=== PATIENT | female | born 1985 | race Caucasian/White ===

== ENCOUNTER 2017-03-11 18:11 | Emergency (ER) | payer OTHER ==
[2017-03-11 18:43] VITALS: BP 128/59; PULSE 64; RESP 16; TEMP 97.8
--- NOTE | 2017-03-11 19:15 | ED ---
Lower Extremity Injury HPI - General Chief Complaint: Extremity Injury, Lower Stated Complaint: Ankle Pain Time Seen by Provider: 03/11/17 18:47 Source: patient, RN notes reviewed Mode of arrival: wheelchair Limitations: no limitations - History of Present Illness Initial Comments: 32-year-old female presents emergency Department chief complaint left ankle pain. Patient states that she went to bend down the steps and states that her ankle rolled. She states she had recurrent issues with this and has seen a [facility] in [place] who told her that she may need surgery. Patient was told that her tendon was rolling over her malleolus region. Patient feels pain on lateral to mid ankle. Thank you foot pain. - Related Data Home Medications Medication Instructions Recorded Confirmed No Known Home Medications [No 03/11/17 03/11/17 Known Home Medications] Allergies Allergy/AdvReac Type Severity Reaction Status Date / Time No Known Allergies Allergy Verified 03/11/17 19:06 Review of Systems ROS Statement: Those systems with pertinent positive or pertinent negative responses have been documented in the HPI. ROS Other: All systems not noted in ROS Statement are negative. Past Medical History Past Medical History: No Reported History History of Any Multi-Drug Resistant Organisms: None Reported Past Surgical History: Section Past Psychological History: No Psychological Hx Reported Smoking Status: Current every day smoker Past Alcohol Use History: None Reported Past Drug Use History: None Reported General Exam Limitations: no limitations General appearance: alert, in no apparent distress Respiratory exam: Present: normal lung sounds bilaterally. Absent: respiratory distress, wheezes, rales, rhonchi, stridor Cardiovascular Exam: Present: regular rate, normal rhythm, normal heart sounds. Absent: systolic murmur, diastolic murmur, rubs, gallop, clicks Extremities exam: Present: other (Left ankle there is tenderness the lateral malleolus and mid ankle, pain with range of motion especially inversion and eversion neurovascular intact there is no metatarsal runny foot tenderness) Skin exam: Present: warm, dry, intact, normal color. Absent: rash Course Vital Signs 03/11/17 18:40 Temperature 97.8 F Pulse Rate 64 Respiratory 16 Rate Blood Pressure 128/59 O2 Sat by Pulse 99 Oximetry Medical Decision Making - Medical Decision Making 32-year-old female emergency from for ankle pain. There is no acute fracture. Patient has recurrent ankle sprains. He'll referred to Dr. clayton foot and ankle specialist. Return parameters were discussed. Disposition Clinical Impression: Left ankle sprain Disposition: HOME SELF-CARE Condition: Stable Instructions: Ankle Sprain (ED) Additional Instructions: Please return to the Emergency Department if symptoms worsen or any other concerns. Referrals: Lukasz Montalvo MD [Medical Doctor] - 1-2 days Time of Disposition: 19:35
--- NOTE | 2017-03-11 19:27 | XR ---
EXAMINATION TYPE: XR ankle complete LT DATE OF EXAM: 03/11/2017 COMPARISON: NONE HISTORY: Pain TECHNIQUE: 3 views FINDINGS: There is soft tissue swelling over the lateral malleolus. Ankle mortise is anatomic. Joint spaces are normal. IMPRESSION: Soft tissue swelling. No fracture.
== END 2017-03-11 19:40 | disposition home or self-care (01) ==
LOC: EC 18:11
DX: S93.402A Sprain of unspecified ligament of left ankle, initial encounter (principal); F17.200 Nicotine dependence, unspecified, uncomplicated; W10.9XXA Fall (on) (from) unspecified stairs and steps, initial encounter; Y92.009 Unspecified place in unspecified non-institutional (private) residence as the place of occurrence of the external cause
CPT/HCPCS: 99283

== ENCOUNTER 2018-03-25 11:01 | Emergency (ER) | payer OTHER ==
[2018-03-25] MEDS ORDERED: SODIUM CHLORIDE 0.9% 1,000 ML IV STA (11:38)
[2018-03-25] MEDS ORDERED: MECLIZINE 12.5 MG TAB PO STA (11:38)
--- NOTE | 2018-03-25 12:16 | ED ---
General Adult HPI - General Chief complaint: Dizziness Stated complaint: SHAKY, DIZZINESS, TUNNEL VISION Time Seen by Provider: 03/25/18 11:23 Source: patient Mode of arrival: wheelchair Limitations: no limitations - History of Present Illness Initial comments: 33-year-old female patient presents to ED with dizziness and changes in vision. At approximately 10 AM while at work patient began to feel dizzy, felt as if it was spinning about her. Dizziness was exacerbated by extraocular movements and turning head from side to side. Patient additionally experienced decreased perception of depth perception and decreased peripheral vision. Her visual complaints have improved since onset but still not at baseline. Patient additionally complained of jaw tightness that has since resolved. Patient complained of some heart palpitations at time of onset, that have since resolved. Denies weakness, headache, paresthesias, facial droop, chest pain, shortness of breath, abdominal pain. Systemic: Pt denies fatigue, myalgia, fever/chills, rash. Pt denies weakness, night sweats, weight loss. Neuro: Pt denies syncope or pre-syncope. HEENT: Pt denies ocular discharge or irritation, otalgia, rhinorrhea, pharyngitis or notable lymphadenopathy. Cardiopulmonary: Pt denies chest pain, SOB, dyspnea on exertion. Abdominal/GI: Pt denies abdominal pain, n/v/d. : Pt denies dysuria, burning w/ urination, frequency/urgency. Denies new onset urinary or bowel incontinence. MSK: Pt denies myalgia, loss of strength or function in extremities. - Related Data Home Medications Medication Instructions Recorded Confirmed Cyanocobalamin (Vitamin B-12) 1,000 mcg PO DAILY 03/25/18 03/25/18 [Vitamin B-12] Ibuprofen [Motrin Ib] 400 mg PO Q6H PRN 03/25/18 03/25/18 Previous Rx's Medication Instructions Recorded Meclizine [Antivert] 25 mg PO Q6H PRN #20 tab 03/25/18 Allergies Allergy/AdvReac Type Severity Reaction Status Date / Time No Known Allergies Allergy Verified 03/25/18 11:46 Review of Systems ROS Statement: Those systems with pertinent positive or pertinent negative responses have been documented in the HPI. ROS Other: All systems not noted in ROS Statement are negative. Past Medical History Past Medical History: No Reported History History of Any Multi-Drug Resistant Organisms: None Reported Past Surgical History: Section, Tubal Ligation Past Psychological History: No Psychological Hx Reported Smoking Status: Current every day smoker Past Alcohol Use History: None Reported Past Drug Use History: None Reported General Exam - General Exam Comments Initial Comments: Constitutional: NAD, AOX3, Pt has pleasant affect. HEENT: NC/AT, trachea midline, neck supple, no lymphadenopathy. Posterior pharynx non erythematous, without exudates. External ears appear normal, without discharge. Mucous membranes moist. Eyes PERRLA, EOM intact. There is no scleral icterus. No pallor noted. Cardiopulmonary: RRR, no murmurs, rubs or gallops, no JVD noted. Lungs CTAB in anterior and posterior méndez. No peripheral edema. Abdominal exam: Abdomen soft and non-distended. Abdomen non-tender to palpation in all 4 quadrants. Bowel sounds active in LLQ. No hepatosplenomegaly. Neuro: CN II-XII grossly intact. Peripheral vision intact. Limitations: no limitations Course Vital Signs 03/25/18 11:19 Temperature 98.3 F Pulse Rate 69 Respiratory 18 Rate Blood Pressure 125/69 O2 Sat by Pulse 100 Oximetry Medical Decision Making - Medical Decision Making Patient dizziness resolved with pharmacologic intervention of meclizine. Patient's symptoms described prior to arrival at ED continued to be resolved. Cardiac workup including EKG and troponin did not display any acute pathology. Noncontrast CT of the brain did not display acute pathology. CBC and CMP were not impressive. Patient's visual acuity subjectively improved per patient, 20/ 20 bilaterally with glasses per evaluation.. Patient will follow-up with ophthalmology outpatient as well as primary care provider. Patient to be discharged with prescription of Antivert to use as needed if dizziness occurs. Likely patient experienced benign positional paroxysmal vertigo. Patient to return to the ED if new symptoms develop, or symptoms worsen. - EKG Data EKG Comments: Normal sinus rhythm, normal EKG. Ventricular rate 65 TN interval 152 QRS 94. Disposition Clinical Impression: Benign paroxysmal positional vertigo Disposition: HOME SELF-CARE Condition: Good Instructions: Vertigo (ED), Benign Paroxysmal Positional Vertigo (ED) Additional Instructions: Patient to adhere to previously discussed treatment plan and will take medications as directed. Patient to follow up with PCP and ophthalmology in 1-2 days. Patient to return to ED if symptoms do not improve or worsen. Prescriptions: Meclizine [Antivert] 25 mg PO Q6H PRN #20 tab PRN Reason: Dizziness Is patient prescribed a controlled substance at d/c from ED?: No Referrals: Yajaira Lopez MD [Primary Care Provider] - 1-2 days Neymar Kerns MD [STAFF PHYSICIAN] - 1-2 days Time of Disposition: 14:40
--- NOTE | 2018-03-25 12:18 | XR ---
EXAMINATION TYPE: XR chest 2V DATE OF EXAM: 03/25/2018 COMPARISON: NONE HISTORY: Chest pain TECHNIQUE: Frontal and lateral views of the chest are obtained. FINDINGS: There is no focal air space opacity. No evidence for pneumothorax. No pleural effusion. The cardiac silhouette size is within normal limits. The osseous structures are grossly intact. IMPRESSION: 1. No acute cardiopulmonary process.
[2018-03-25 12:24] LABS: Basophils % (A) 0 %; Eosinophils # (A) 0.1 k/uL (0-0.7); Eosinophils % (A) 1 %; HCT 41.2 % (34.0-46.0); HGB 13.9 gm/dL (11.4-16.0); Lymphocytes # (A) 1.7 k/uL (1.0-4.8); Lymphocytes % (A) 16 %; MCH 29.7 pg (25.0-35.0); MCHC 33.7 g/dL (31.0-37.0); MCV 88.1 fL (80.0-100.0); Mean Platelet Volume 9.7; Monocytes # (A) 0.4 k/uL (0-1.0); Monocytes % (A) 4 %; Neutrophils # (A) 8.4 k/uL (1.3-7.7); Neutrophils % (A) 78 %; Platelet Count 210 k/uL (150-450); RBC 4.67 m/uL (3.80-5.40); WBC 10.7 k/uL (3.8-10.6)
[2018-03-25 12:40] LABS: ALT 19 U/L (9-52); AST 19 U/L (14-36); Albumin 4.8 g/dL (3.5-5.0); Alkaline Phosphatase 73 U/L (38-126); Anion Gap 13 mmol/L; Blood Urea Nitrogen 13 mg/dL (7-17); Calcium 10.6 mg/dL (8.4-10.2); Carbon Dioxide 20 mmol/L (22-30); Chloride 107 mmol/L (98-107); Glucose 102 mg/dL (74-99); Potassium 4.2 mmol/L (3.5-5.1); Sodium 140 mmol/L (137-145); Total Bilirubin 0.7 mg/dL (0.2-1.3); Total Protein 8.1 g/dL (6.3-8.2)
--- NOTE | 2018-03-25 14:08 | CT ---
EXAMINATION TYPE: CT brain wo con DATE OF EXAM: 03/25/2018 COMPARISON: None HISTORY: dizziness, tunnel vision CT DLP: 1074.[address] of the brain was performed. The ventricles, basal cisterns and sulci overlying the cerebral convexities demonstrate a normal appe arance. There is no evidence for intracranial hemorrhage or sulcal effacement. No mass effects are seen. Osseous calvarium is intact. If symptoms persist consider MRI as clinically warranted. IMPRESSION: 1. No acute intracranial process is seen at this time.
[2018-03-25 15:05] VITALS: BP 118/81; PULSE 78; RESP 16; TEMP 97.8
== END 2018-03-25 15:04 | disposition home or self-care (01) ==
LOC: EC 11:01
DX: H81.10 Benign paroxysmal vertigo, unspecified ear (principal); F17.200 Nicotine dependence, unspecified, uncomplicated
CPT/HCPCS: 36415; 70450; 71046; 80053; 84484; 85025; 93005; 96360; 96361; 99284

== ENCOUNTER 2020-12-10 07:34 | Emergency (ER) | payer OTHER ==
[2020-12-10] MEDS ORDERED: SODIUM CHLORIDE 0.9% 1,000 ML IV STA (08:05)
--- NOTE | 2020-12-10 08:08 | ED ---
General Adult HPI - General Chief complaint: Abdominal Pain Stated complaint: L Side Pain Time Seen by Provider: 12/10/20 07:48 Source: patient Mode of arrival: ambulatory Limitations: no limitations - History of Present Illness Initial comments: 35-year-old female with a past medical history of anxiety presents to the emergency department for chief complaint of left-sided low to mid back pain. Patient reports this has been ongoing for the past several weeks. States she saw her primary care doctor who treated her for a urinary tract infection. She states the pain did improve however worsened again over the past couple days. Patient denies fevers or chills. Patient is concerned she could have a kidney stone. Patient states she was going to go to work today but was nauseous because of the pain so came into the ER.Patient has no other complaints at this time including shortness of breath, chest pain, abdominal pain, nausea or vomiting, headache, or visual changes. - Related Data Home Medications Medication Instructions Recorded Confirmed Escitalopram Oxalate [Lexapro] 5 mg PO DAILY 12/10/20 12/10/20 clonazePAM [KlonoPIN] 0.25 mg PO BID 12/10/20 12/10/20 Previous Rx's Medication Instructions Recorded Cyclobenzaprine [Flexeril] 10 mg PO TID #14 tab 12/10/20 Allergies Allergy/AdvReac Type Severity Reaction Status Date / Time No Known Allergies Allergy Verified 12/10/20 07:59 Review of Systems ROS Statement: Those systems with pertinent positive or pertinent negative responses have been documented in the HPI. ROS Other: All systems not noted in ROS Statement are negative. Past Medical History Past Medical History: No Reported History Additional Past Medical History / Comment(s): anxiety History of Any Multi-Drug Resistant Organisms: None Reported Past Surgical History: Section, Tubal Ligation, Uterine Ablation Additional Past Surgical History / Comment(s): ear Past Psychological History: Anxiety, Depression Smoking Status: Never smoker Past Alcohol Use History: None Reported Past Drug Use History: None Reported General Exam Limitations: no limitations General appearance: alert Head exam: Present: atraumatic, normocephalic, normal inspection Eye exam: Present: normal appearance, PERRL, EOMI. Absent: scleral icterus, conjunctival injection, periorbital swelling ENT exam: Present: normal exam, mucous membranes moist Neck exam: Present: normal inspection, full ROM. Absent: tenderness, meningismus, lymphadenopathy Respiratory exam: Present: normal lung sounds bilaterally. Absent: respiratory distress, wheezes, rales, rhonchi, stridor Cardiovascular Exam: Present: regular rate, normal rhythm, normal heart sounds. Absent: systolic murmur, diastolic murmur, rubs, gallop, clicks GI/Abdominal exam: Present: soft, normal bowel sounds. Absent: distended, tenderness, guarding, rebound, rigid Back exam: Present: tenderness (Left sided lumbar paraspinal tenderness). Absent: CVA tenderness (R), CVA tenderness (L) Neurological exam: Present: alert Course Vital Signs 12/10/20 07:42 Temperature 97.9 F Pulse Rate 61 Respiratory 18 Rate Blood Pressure 122/67 O2 Sat by Pulse 100 Oximetry Medical Decision Making - Medical Decision Making Vitals are stable. Patient does not have any abdominal or CVA tenderness. She does have reproducible sided paraspinal lumbar tenderness. CBC and CMP are unremarkable. Urinalysis does not show any obvious evidence of infection. CT abdomen and pelvis with contrast shows a nonspecific enteritis. No kidney stones. Patient is given pain medication and did have improvement in symptoms. It is reproducible to palpation. Suspect pain is likely musculoskeletal in nature. We will try patient on a muscle relaxer and have her follow up with primary care. She will return here for any worsening symptoms. - Lab Data Result diagrams: 12/10/20 08:17 12/10/20 08:17 Lab Results 12/10/20 12/10/20 12/10/20 Range/Units 08:17 08:17 08:17 WBC 8.0 (3.8-10.6) k/uL RBC 4.88 (3.80-5.40) m/uL Hgb 14.5 (11.4-16.0) gm/dL Hct 44.6 (34.0-46.0) % MCV 91.3 (80.0-100.0) fL MCH 29.8 (25.0-35.0) pg MCHC 32.6 (31.0-37.0) g/dL RDW 13.7 (11.5-15.5) % Plt Count 203 (150-450) k/uL MPV 9.3 Neutrophils % 72 % Lymphocytes % 20 % Monocytes % 4 % Eosinophils % 3 % Basophils % 1 % Neutrophils # 5.7 (1.3-7.7) k/uL Lymphocytes # 1.6 (1.0-4.8) k/uL Monocytes # 0.3 (0-1.0) k/uL Eosinophils # 0.2 (0-0.7) k/uL Basophils # 0.1 (0-0.2) k/uL Sodium (137-145) mmol/L Potassium (3.5-5.1) mmol/L Chloride (98-107) mmol/L Carbon Dioxide (22-30) mmol/L Anion Gap mmol/L BUN (7-17) mg/dL Creatinine (0.52-1.04) mg/dL Est GFR (CKD-EPI)AfAm (>60 ml/min/1.73 sqM) Est GFR (CKD-EPI)NonAf (>60 ml/min/1.73 sqM) Glucose (74-99) mg/dL Calcium (8.4-10.2) mg/dL Total Bilirubin (0.2-1.3) mg/dL AST (14-36) U/L ALT (4-34) U/L Alkaline Phosphatase (38-126) U/L Total Protein (6.3-8.2) g/dL Albumin (3.5-5.0) g/dL Amylase (30-110) U/L Lipase (23-300) U/L Urine Color Yellow Urine Appearance Clear (Clear) Urine pH 5.5 (5.0-8.0) Ur Specific [place] 1.010 (1.001-1.035) Urine Protein Negative (Negative) Urine Glucose (UA) Negative (Negative) Urine Ketones Negative (Negative) Urine Blood Negative (Negative) Urine Nitrite Negative (Negative) Urine Bilirubin Negative (Negative) Urine Urobilinogen <2.0 (<2.0) mg/dL Ur Leukocyte Esterase Small H (Negative) Urine WBC 4 (0-5) /hpf Ur Squamous Epith Cells 1 (0-4) /hpf Urine Bacteria Rare H (None) /hpf Urine Mucus Rare H (None) /hpf Urine HCG, Qual Not Detected (Not Detectd) 12/10/20 Range/Units 08:17 WBC (3.8-10.6) k/uL RBC (3.80-5.40) m/uL Hgb (11.4-16.0) gm/dL Hct (34.0-46.0) % MCV (80.0-100.0) fL MCH (25.0-35.0) pg MCHC (31.0-37.0) g/dL RDW (11.5-15.5) % Plt Count (150-450) k/uL MPV Neutrophils % % Lymphocytes % % Monocytes % % Eosinophils % % Basophils % % Neutrophils # (1.3-7.7) k/uL Lymphocytes # (1.0-4.8) k/uL Monocytes # (0-1.0) k/uL Eosinophils # (0-0.7) k/uL Basophils # (0-0.2) k/uL Sodium 141 (137-145) mmol/L Potassium 4.0 (3.5-5.1) mmol/L Chloride 108 H (98-107) mmol/L Carbon Dioxide 24 (22-30) mmol/L Anion Gap 9 mmol/L BUN 11 (7-17) mg/dL Creatinine 0.65 (0.52-1.04) mg/dL Est GFR (CKD-EPI)AfAm >90 (>60 ml/min/1.73 sqM) Est GFR (CKD-EPI)NonAf >90 (>60 ml/min/1.73 sqM) Glucose 108 H (74-99) mg/dL Calcium 10.0 (8.4-10.2) mg/dL Total Bilirubin 0.4 (0.2-1.3) mg/dL AST 23 (14-36) U/L ALT 14 (4-34) U/L Alkaline Phosphatase 96 (38-126) U/L Total Protein 7.5 (6.3-8.2) g/dL Albumin 4.7 (3.5-5.0) g/dL Amylase 50 (30-110) U/L Lipase 31 (23-300) U/L Urine Color Urine Appearance (Clear) Urine pH (5.0-8.0) Ur Specific [place] (1.001-1.035) Urine Protein (Negative) Urine Glucose (UA) (Negative) Urine Ketones (Negative) Urine Blood (Negative) Urine Nitrite (Negative) Urine Bilirubin (Negative) Urine Urobilinogen (<2.0) mg/dL Ur Leukocyte Esterase (Negative) Urine WBC (0-5) /hpf Ur Squamous Epith Cells (0-4) /hpf Urine Bacteria (None) /hpf Urine Mucus (None) /hpf Urine HCG, Qual (Not Detectd) Disposition Clinical Impression: Back pain, Enteritis Disposition: HOME SELF-CARE Condition: Good Instructions (If sedation given, give patient instructions): Back Pain (ED) Additional Instructions: Please take Motrin and Tylenol for pain. Take muscle relaxer as needed but do not drive or operate machinery while taking this. Follow-up with your doctor to discuss symptoms as well as CAT scan findings. Return to the emergency room for any worsening symptoms. Prescriptions: Cyclobenzaprine [Flexeril] 10 mg PO TID #14 tab Is patient prescribed a controlled substance at d/c from ED?: No Referrals: Dhiraj Keenan MD [Primary Care Provider] - 1-2 days Time of Disposition: 09:51
[2020-12-10 08:26] LABS: Basophils # (A) 0.1 k/uL (0-0.2); Basophils % (A) 1 %; Eosinophils # (A) 0.2 k/uL (0-0.7); Eosinophils % (A) 3 %; HCT 44.6 % (34.0-46.0); HGB 14.5 gm/dL (11.4-16.0); Lymphocytes # (A) 1.6 k/uL (1.0-4.8); Lymphocytes % (A) 20 %; MCH 29.8 pg (25.0-35.0); MCHC 32.6 g/dL (31.0-37.0); MCV 91.3 fL (80.0-100.0); Mean Platelet Volume 9.3; Monocytes # (A) 0.3 k/uL (0-1.0); Monocytes % (A) 4 %; Neutrophils # (A) 5.7 k/uL (1.3-7.7); Neutrophils % (A) 72 %; Platelet Count 203 k/uL (150-450); RBC 4.88 m/uL (3.80-5.40); RDW 13.7 % (11.5-15.5)
[2020-12-10 08:30] LABS: Appearance,Urine Clear (Clear); Bacteria,Urine Rare /hpf; Bilirubin,Urine Negative (Negative); Blood,Urine Negative (Negative); Color,Urine Yellow; Glucose,Urine (UA) Negative (Negative); Ketones,Urine Negative (Negative); Leukocyte Esterase,Urine Small (Negative); Mucus,Urine Rare /hpf; Nitrite,Urine Negative (Negative); PH, Urine 5.5 (5.0-8.0); Protein,Urine Negative (Negative); Squamous Epithelial Cell,Urine 1 /hpf (0-4); Urobilinogen,Urine <2.0 mg/dL (<2.0); WBC,Urine 4 /hpf (0-5)
[2020-12-10 08:40] LABS: ALT 14 U/L (4-34); AST 23 U/L (14-36); African American GFR (CKD) >90 (>60 ml/min/1.73 sqM); Albumin 4.7 g/dL (3.5-5.0); Alkaline Phosphatase 96 U/L (38-126); Amylase 50 U/L (30-110); Anion Gap 9 mmol/L; Blood Urea Nitrogen 11 mg/dL (7-17); Carbon Dioxide 24 mmol/L (22-30); Chloride 108 mmol/L (98-107); Glucose 108 mg/dL (74-99); Lipase 31 U/L (23-300); Non-African American GFR(CKD) >90 (>60 ml/min/1.73 sqM); Sodium 141 mmol/L (137-145); Total Bilirubin 0.4 mg/dL (0.2-1.3); Total Protein 7.5 g/dL (6.3-8.2)
[2020-12-10] MEDS ORDERED: KETOROLAC 15 MG/ML 1 ML VIAL IVP STA (09:07)
--- NOTE | 2020-12-10 09:47 | CT ---
EXAMINATION TYPE: CT abdomen pelvis w con DATE OF EXAM: 12/10/2020 COMPARISON: None HISTORY: Left flank pain CT DLP: 1222.7 mGycm CONTRAST: CT scan of the abdomen and pelvis is performed without Oral Contrast and with IV Contrast, patient in jected with 100 ml mL of Isovue 300. FINDINGS: LUNG BASES-: No visible nodule. No infiltrate. LIVER/GB: No calcified gallstones. No space occupying hepatic lesion. Biliary tree is of normal ca liber. PANCREAS: No inflammation. No distinct mass. SPLEEN: No splenic enlargement. No lesion seen. ADRENALS: No nodule. No thickening. KIDNEYS/BLADDER: No hydronephrosis. No nephrolithiasis. No distinct renal mass. Urinary bladder g rossly unremarkable. BOWEL: Normal appendix. Mild wall thickening and fluid distention mid to distal jejunal loops may ref lect underlying enteritis. Correlate clinically. GENITAL ORGANS: No gross abnormality. LYMPH NODES: No greater than 1cm abdominal or pelvic lymph nodes are appreciated. AORTA: No significant abnormality. OSSEOUS STRUCTURES: No significant abnormality is seen. OTHER: No significant additional abnormality is seen. IMPRESSION: 1. Correlate for nonspecific enteritis.
[2020-12-10 10:05] VITALS: BP 100/69; PULSE 60; RESP 16; TEMP 98.1
== END 2020-12-10 10:25 | disposition home or self-care (01) ==
LOC: EC 07:34
DX: K52.9 Noninfective gastroenteritis and colitis, unspecified (principal); Z98.51 Tubal ligation status; F32.9 Major depressive disorder, single episode, unspecified
CPT/HCPCS: 36415; 80053; 82150; 83690; 85025; 81001; 81025; 74177; 99284; 96374; 96361 ×2; J1885; Q9967

== ENCOUNTER 2022-11-24 07:09 | Observation (INO) | payer OTHER ==
[2022-11-24] MEDS ORDERED: SODIUM CHLORIDE 0.9% 500 ML 500 ML IV STA (07:23)
[2022-11-24] MEDS ORDERED: KETOROLAC 15 MG/ML 1 ML VIAL IVP STA (07:23)
[2022-11-24] MEDS ORDERED: ONDANSETRON 4 MG/2 ML VIAL IVP STA (07:23)
--- NOTE | 2022-11-24 07:28 | ED ---
General Adult HPI - General Chief complaint: Abdominal Pain Stated complaint: Right side abd pain Time Seen by Provider: 11/24/22 07:18 Source: patient Mode of arrival: ambulatory Limitations: no limitations - History of Present Illness Initial comments: Nontoxic, tearful 37-year-old female presents to the emergency room with right- sided flank pain that radiates to her right groin. Patient states pain initially started in her back on Thursday. Increasing discomfort brought her to the emergency room today. Does have a history of kidney stones, last one over a decade ago. Denies any fevers. No nausea vomiting or diarrhea. History of tubal ligation with uterine ablation and depression. -: days(s) (4) Location: right (flank) Radiation: other (right groin) Severity scale (1-10): 10 Quality: constant Associated Symptoms: denies other symptoms - Related Data Home Medications Medication Instructions Recorded Confirmed clonazePAM [KlonoPIN] 0.5 mg PO DAILY PRN 12/10/20 11/24/22 Escitalopram [Lexapro] 10 mg PO DAILY 11/24/22 11/24/22 Ibuprofen [Motrin Ib] 800 mg PO Q8H PRN 11/24/22 11/24/22 Allergies Allergy/AdvReac Type Severity Reaction Status Date / Time No Known Allergies Allergy Verified 11/24/22 08:54 Patient : No Review of Systems ROS Statement: Those systems with pertinent positive or pertinent negative responses have been documented in the HPI. ROS Other: All systems not noted in ROS Statement are negative. Past Medical History Past Medical History: No Reported History Additional Past Medical History / Comment(s): anxiety History of Any Multi-Drug Resistant Organisms: None Reported Past Surgical History: Section, Tubal Ligation, Uterine Ablation Additional Past Surgical History / Comment(s): ear Past Psychological History: Anxiety, Depression Smoking Status: Current every day smoker Past Alcohol Use History: Occasional Past Drug Use History: Marijuana General Exam Limitations: no limitations General appearance: alert, in no apparent distress Head exam: Present: atraumatic Eye exam: Present: normal appearance. Absent: scleral icterus, periorbital swelling ENT exam: Present: mucous membranes moist Neck exam: Absent: meningismus Respiratory exam: Absent: respiratory distress, accessory muscle use Cardiovascular Exam: Present: regular rate GI/Abdominal exam: Present: soft. Absent: distended, tenderness, guarding, rebound, rigid Extremities exam: Present: full ROM, normal capillary refill. Absent: pedal edema Back exam: Present: full ROM, CVA tenderness (R). Absent: vertebral tenderness, rash noted Neurological exam: Present: alert, oriented X3 Psychiatric exam: Present: normal affect, normal mood Skin exam: Present: warm, dry, normal color. Absent: cyanosis, diaphoretic, petechiae, pallor Course Vital Signs 11/24/22 11/24/22 11/24/22 07:12 10:41 11:30 Temperature 98.1 F Pulse Rate 86 67 77 Respiratory 22 18 18 Rate Blood Pressure 146/80 116/67 120/68 O2 Sat by Pulse 98 97 99 Oximetry Medical Decision Making - Medical Decision Making Was pt. sent in by a medical professional or institution (, PA, INTEGRATION MANAGER, urgent care, hospital, or prison...) When possible be specific @ -No Did you speak to anyone other than the patient for history (EMS, parent, family, police, friend...)? What history was obtained from this source @ -No Did you review nursing and triage notes (agree or disagree)? Why? @ -I reviewed and agree with nursing and triage notes Were old charts reviewed (outside hosp., previous admission, EMS record, old EKG, old radiological studies, urgent care reports/EKG's, prison records)? Report findings @ -No old charts were reviewed Differential Diagnosis (chest pain, altered mental status, abdominal pain women, abdominal pain men, vaginal bleeding, weakness, fever, dyspnea, syncope, headache, dizziness, GI bleed, back pain, seizure, CVA, palpatations, mental health, musculoskeletal)? @ -UTI, kidney stone, pyelonephritis EKG interpreted by me (3pts min.). @ -n/a X-rays interpreted by me (1pt min.). @ -None done CT interpreted by me (1pt min.). @ -yes CT abdomen and pelvis interpreted by me shows no evidence of abnormal calculi. U/S interpreted by me (1pt. min.). @ -None done What testing was considered but not performed or refused? (CT, X-rays, U/S, labs)? Why? @ -None What meds were considered but not given or refused? Why? @ -None Did you discuss the management of the patient with other professionals (professionals i.e. , PA, INTEGRATION MANAGER, lab, RT, psych nurse, oncology social work, hybrid corn breeder, teacher, medical officer psychiatry, mattress spring encaser)? Give summary @ -No Was smoking cessation discussed for >3mins.? @ -No Was critical care preformed (if so, how long)? @ -No Were there social determinants of health that impacted care today? How? (Homelessness, low income, unemployed, alcoholism, drug addiction, transportation, low edu. Level, literacy, decrease access to med. care, prison, rehab)? @ -No Was there de-escalation of care discussed even if they declined (Discuss DNR or withdrawal of care, Hospice)? DNR status @ -No What co-morbidities impacted this encounter? (DM, HTN, Smoking, COPD, CAD, Cancer, CVA, ARF, Chemo, Hep., AIDS, mental health diagnosis, sleep apnea, morbid obesity)? @ -History of tubal ligation with uterine ablation, anxiety and depression. Was patient admitted / discharged? Hospital course, mention meds given and r oute, prescriptions, significant lab abnormalities, going to OR and other pertinent info. @ -Admitted Nontoxic, tearful 37-year-old female presents to the emergency room with right- sided flank pain that radiates to her right groin. Patient states pain initially started right flank on Thursday. Increasing discomfort brought her to the emergency room today. Does have a history of kidney stones, last one over a decade ago. Denies any fevers. No nausea vomiting or diarrhea. Radiologist interpretation small to moderate right hydronephrosis and hydroureter extending to the urinary bladder. No obstructing renal or ureteral stones. Some mild wall thickening of the urinary bladder with some mild irregularity. Correlate for cystitis. Neoplasm unusual but should be consid ered. Additional workup recommended. Labs show leukocytosis with evidence of UTI, positive for nitrites, bacteria and leukocyte esterase. Urine culture sent. Patient was given a gram of Rocephin to treat pyelonephritis. Patient offered discharge versus admission and requests admission due to nelly rns regarding pain although states pain is relieved with Toradol at this time. Patient will be admitted Case discussed with Dr. Johnston Undiagnosed new problem with uncertain prognosis? @ -No Drug Therapy requiring intensive monitoring for toxicity (Heparin, Nitro, Insulin, Cardizem)? @ -No Were any procedures done? @ -No Diagnosis/symptom? @ -Pyelonephritis, hydronephrosis hydroureter, UTI Acute, or Chronic, or Acute on Chronic? @ -acute Uncomplicated (without systemic symptoms) or Complicated (systemic symptoms)? @ -Complicated Side effects of treatment? @ -No Exacerbation, Progression, or Severe Exacerbation? @ -No Poses a threat to life or bodily function? How? (Chest pain, [place], AR, pneumonia, PE, COPD, DKA, ARF, appy, cholecystitis, CVA, Diverticulitis, Homicidal, Suicidal, threat to staff... and all critical care pts) @ -No - Lab Data Result diagrams: 11/24/22 07:48 11/24/22 07:48 Lab Results 11/24/22 11/24/22 11/24/22 Range/Units 07:48 07:48 07:48 WBC 15.3 H (3.8-10.6) k/uL RBC 4.53 (3.80-5.40) m/uL Hgb 14.3 (11.4-16.0) gm/dL Hct 43.5 (34.0-46.0) % MCV 96.1 (80.0-100.0) fL MCH 31.6 (25.0-35.0) pg MCHC 32.9 (31.0-37.0) g/dL RDW 13.4 (11.5-15.5) % Plt Count 253 (150-450) k/uL MPV 10.3 Neutrophils % 84 % Lymphocytes % 9 % Monocytes % 3 % Eosinophils % 3 % Basophils % 0 % Neutrophils # 12.9 H (1.3-7.7) k/uL Lymphocytes # 1.4 (1.0-4.8) k/uL Monocytes # 0.4 (0-1.0) k/uL Eosinophils # 0.4 (0-0.7) k/uL Basophils # 0.0 (0-0.2) k/uL Sodium 138 (137-145) mmol/L Potassium 5.2 H (3.5-5.1) mmol/L Chloride 107 (98-107) mmol/L Carbon Dioxide 24 (22-30) mmol/L Anion Gap 7 mmol/L BUN 11 (7-17) mg/dL Creatinine 0.73 (0.52-1.04) mg/dL Est GFR (CKD-EPI)AfAm >90 (>60 ml/min/1.73 sqM) Est GFR (CKD-EPI)NonAf >90 (>60 ml/min/1.73 sqM) Glucose 103 H (74-99) mg/dL Calcium 9.3 (8.4-10.2) mg/dL Total Bilirubin 1.2 (0.2-1.3) mg/dL AST 41 H (14-36) U/L ALT 17 (4-34) U/L Alkaline Phosphatase 92 (38-126) U/L Total Protein 7.6 (6.3-8.2) g/dL Albumin 4.3 (3.5-5.0) g/dL Urine Color Yellow Urine Appearance Cloudy H (Clear) Urine pH 6.5 (5.0-8.0) Ur Specific [employer] 1.013 (1.001-1.035) Urine Protein 2+ H (Negative) Urine Glucose (UA) Negative (Negative) Urine Ketones Negative (Negative) Urine Blood Moderate H (Negative) Urine Nitrite Positive H (Negative) Urine Bilirubin Negative (Negative) Urine Urobilinogen <2.0 (<2.0) mg/dL Ur Leukocyte Esterase Large H (Negative) Urine RBC 22 H (0-5) /hpf Urine WBC >182 H (0-5) /hpf Urine WBC Clumps Many H (None) /hpf Ur Squamous Epith Cells 1 (0-4) /hpf Urine Bacteria Occasional H (None) /hpf Urine Mucus Rare H (None) /hpf Disposition Clinical Impression: UTI (urinary tract infection), Hydronephrosis, Hydroureter, left, Pyelonephritis Disposition: ADMITTED IP TO THIS [facility] Decision Date: 11/24/22 Decision Time: 08:30
[2022-11-24] MEDS ORDERED: MORPHINE SULFATE 4 MG/ML SYRINGE IVP PRN (07:46)
[2022-11-24 07:59] LABS: Basophils % (A) 0 %; Eosinophils # (A) 0.4 k/uL (0-0.7); Eosinophils % (A) 3 %; HCT 43.5 % (34.0-46.0); HGB 14.3 gm/dL (11.4-16.0); Lymphocytes # (A) 1.4 k/uL (1.0-4.8); Lymphocytes % (A) 9 %; MCH 31.6 pg (25.0-35.0); MCHC 32.9 g/dL (31.0-37.0); MCV 96.1 fL (80.0-100.0); Mean Platelet Volume 10.3; Monocytes # (A) 0.4 k/uL (0-1.0); Monocytes % (A) 3 %; Neutrophils # (A) 12.9 k/uL (1.3-7.7); Neutrophils % (A) 84 %; Platelet Count 253 k/uL (150-450); RBC 4.53 m/uL (3.80-5.40); RDW 13.4 % (11.5-15.5); WBC 15.3 k/uL (3.8-10.6)
--- NOTE | 2022-11-24 08:14 | CT ---
EXAMINATION TYPE: CT abdomen pelvis wo con DATE OF EXAM: 11/24/2022 COMPARISON: 12/10/2020 INDICATION: Right flank pain, History of renal stones DLP: 831.7 mGycm, Automated exposure control for dose reduction was used. CONTRAST: 0 mL of Isovue 370. Study performed without Oral Contrast TECHNIQUE: Axial images were obtained from above the diaphragm to the pubic rami in the axial plane a t 5 mm thick sections. Reconstructed images are reviewed on the computer in the coronal plane. FINDINGS: Limited CT sections are obtained the lung bases. The lung bases are clear. CT ABDOMEN: Liver: Normal Spleen: Normal Pancreas: Normal Adrenal glands: The adrenal glands are normal. Gallbladder: Normal Kidneys: No masses are evident. There is small to moderate right hydronephrosis. Right hydroureter is present. No cysts are present. No renal stones are identified. Aorta: Normal Inferior vena cava: Normal. CT PELVIS: Loops of bowel within the abdomen and pelvis are normal. There are loops of bowel which are incom pletely distended or lack oral contrast limiting their evaluation. Appendix: Normal as visualized. Urinary bladder: Maybe some diffuse wall thickening which may be mildly irregular. Correlate for cyst itis. Additional workup however is recommended Genitourinary structures: Uterus appears unremarkable. There may be a 2.2 cm cyst within the right. Left adnexa appears normal. Osseous structures: No suspicious lytic or sclerotic lesions. IMPRESSIONS: 1. Small to moderate right hydronephrosis and hydroureter extending to the urinary bladder. No obstr ucting renal or ureteral stones. 2. There may be some mild wall thickening of the urinary bladder with some mild irregularity. Correla te for cystitis. Neoplasm with be unusual but should be considered. Additional workup recommended.
[2022-11-24 08:17] LABS: Appearance,Urine Cloudy (Clear); Bacteria,Urine Occasional /hpf; Bilirubin,Urine Negative (Negative); Blood,Urine Moderate (Negative); Color,Urine Yellow; Glucose,Urine (UA) Negative (Negative); Ketones,Urine Negative (Negative); Leukocyte Esterase,Urine Large (Negative); Mucus,Urine Rare /hpf; Nitrite,Urine Positive (Negative); PH, Urine 6.5 (5.0-8.0); Protein,Urine 2+ (Negative); RBC,Urine 22 /hpf (0-5); Specific Gravity,Urine 1.013 (1.001-1.035); Squamous Epithelial Cell,Urine 1 /hpf (0-4); Urobilinogen,Urine <2.0 mg/dL (<2.0); WBC,Urine >182 /hpf (0-5)
[2022-11-24] MEDS ORDERED: cefTRIAXone IN SWFI 1,000 MG/10 ML SYRINGE IVP STA (08:18)
[2022-11-24 08:41] LABS: ALT 17 U/L (4-34); AST 41 U/L (14-36); African American GFR (CKD) >90 (>60 ml/min/1.73 sqM); Albumin 4.3 g/dL (3.5-5.0); Alkaline Phosphatase 92 U/L (38-126); Anion Gap 7 mmol/L; Blood Urea Nitrogen 11 mg/dL (7-17); Calcium 9.3 mg/dL (8.4-10.2); Carbon Dioxide 24 mmol/L (22-30); Chloride 107 mmol/L (98-107); Glucose 103 mg/dL (74-99); Non-African American GFR(CKD) >90 (>60 ml/min/1.73 sqM); Sodium 138 mmol/L (137-145); Total Bilirubin 1.2 mg/dL (0.2-1.3); Total Protein 7.6 g/dL (6.3-8.2)
[2022-11-24] MEDS ORDERED: ACETAMINOPHEN TAB 325 MG TAB PO PRN (08:43)
[2022-11-24] MEDS ORDERED: NALOXONE 0.4 MG/ML 1 ML VIAL IV PRN (08:43)
[2022-11-24 09:01] LABS: Potassium 5.2 mmol/L (3.5-5.1)
[2022-11-24] MEDS: SODIUM CHLORIDE 0.9% 1,000 ML IV SCH (09:30)
[2022-11-24] MEDS: ONDANSETRON 4 MG/2 ML VIAL IVP PRN (13:18)
[2022-11-24] MEDS: KETOROLAC 15 MG/ML 1 ML VIAL IVP PRN ×2 (14:29→23:51)
[2022-11-24] MEDS ORDERED: clonazePAM 0.5 MG TAB PO PRN (15:32)
--- NOTE | 2022-11-24 15:36 | P.HPIM ---
History of Present Illness H&P Date: 11/24/22 History of present illness; patient 37-year-old lady with past medical significant for kidney stones and depression who presented to the ER because of right-sided flank pain. Patient stated that Thursday she started noticing increased burning off urination, also complaining of increased frequency. There was no complaint of fever or chills. It was accompanied with right-sided flank pain which gradually worsened and started radiating to her groin. Denies any hematuria. Denies any nausea or vomiting. Denies any lightheadedness or dizziness. Because of his right flank pain and burning micturition, patient came to the ER Initial lab work in the ER showed WBC 15.3, hemoglobin 14.3, sodium 138, potassium 5.2, BUN 11, AST 41, AST 17. UA positive for leukocyte esterase and urine nitrites CT abdomen pelvis showed small to moderate right hydronephrosis and hydroureter extending the urinary bladder, no obstructing renal or ureteral stones seen Patient admitted to medicine service REVIEW OF SYSTEMS: CONSTITUTIONAL: No fever, no malaise, no fatigue. HEENT: No recent visual problems or hearing problems. Denied any sore throat. CARDIOVASCULAR: No chest pain, orthopnea, PND, no palpitations, no syncope. PULMONARY: No shortness of breath, no cough, no hemoptysis. GASTROINTESTINAL: As mentioned in HPI. NEUROLOGICAL: No headaches, no weakness, no numbness. HEMATOLOGICAL: Denies any bleeding or petechiae. GENITOURINARY: As mentioned in HPI MUSCULOSKELETAL/RHEUMATOLOGICAL: Denies any joint pain, swelling, or any muscle pain. ENDOCRINE: Denies any polyuria or polydipsia. The rest of the 14-point review of systems is negative. PHYSICAL EXAMINATION: GENERAL: The patient is alert and oriented x3, not in any acute distress. Well developed, well nourished. HEENT: Pupils are round and equally reacting to light. EOMI. No scleral icterus. No conjunctival pallor. Normocephalic, atraumatic. No pharyngeal erythema. No thyromegaly. CARDIOVASCULAR: S1 and S2 present. No murmurs, rubs, or gallops. PULMONARY: Chest is clear to auscultation, no wheezing or crackles. ABDOMEN: Soft, nontender, nondistended, normoactive bowel sounds. No palpable organomegaly. MUSCULOSKELETAL: No joint swelling or deformity. EXTREMITIES: No cyanosis, clubbing, or pedal edema. NEUROLOGICAL: Gross neurological examination did not reveal any focal deficits. SKIN: No rashes. Assessment and plan Acute pyelonephritis History of kidney stones History of depression Monitor vital signs Monitor CBC Monitor CMP Follow-up on blood cultures Follow-up urine cultures Continue IV fluids Continue IV Rocephin Continue pain management Consult urology Consult ID DVT prophylaxis: Past Medical History Past Medical History: No Reported History Additional Past Medical History / Comment(s): anxiety History of Any Multi-Drug Resistant Organisms: None Reported Past Surgical History: Section, Tubal Ligation, Uterine Ablation Additional Past Surgical History / Comment(s): ear Past Anesthesia/Blood Transfusion Reactions: No Reported Reaction Past Psychological History: Anxiety, Depression Smoking Status: Current every day smoker Past Alcohol Use History: Occasional Past Drug Use History: Marijuana - Past Family History Father Family Medical History: Blood Disorder Mother Family Medical History: Hypertension Additional Family Medical History / Comment(s): obese Medications and Allergies Home Medications Medication Instructions Recorded Confirmed Type clonazePAM [KlonoPIN] 0.5 mg PO DAILY PRN 12/10/20 11/24/22 History Escitalopram [Lexapro] 10 mg PO DAILY 11/24/22 11/24/22 History Ibuprofen [Motrin Ib] 800 mg PO Q8H PRN 11/24/22 11/24/22 History Allergies Allergy/AdvReac Type Severity Reaction Status Date / Time No Known Allergies Allergy Verified 11/24/22 08:54 Physical Exam Vitals: Vital Signs Temp Pulse Pulse Resp BP BP Pulse Ox 11/24/22 14:12 100.3 F H 11/24/22 13:35 102.1 F H 88 21 111/66 100 11/24/22 13:13 98.3 F 78 18 128/78 99 11/24/22 11:30 77 18 120/68 99 11/24/22 10:41 67 18 116/67 97 11/24/22 07:12 98.1 F 86 22 146/80 98 Intake and Output 11/24/22 11/24/22 11/24/22 06:59 14:59 22:59 Other: # Voids 1 Weight 81.647 kg Results CBC & Chem 7: 11/24/22 07:48 11/24/22 07:48 Labs: Abnormal Lab Results - Last 24 Hours (Table) 11/24/22 11/24/22 11/24/22 Range/Units 07:48 07:48 07:48 WBC 15.3 H (3.8-10.6) k/uL Neutrophils # 12.9 H (1.3-7.7) k/uL Potassium 5.2 H (3.5-5.1) mmol/L Glucose 103 H (74-99) mg/dL AST 41 H (14-36) U/L Urine Appearance Cloudy H (Clear) Urine Protein 2+ H (Negative) Urine Blood Moderate H (Negative) Urine Nitrite Positive H (Negative) Ur Leukocyte Esterase Large H (Negative) Urine RBC 22 H (0-5) /hpf Urine WBC >182 H (0-5) /hpf Urine WBC Clumps Many H (None) /hpf Urine Bacteria Occasional H (None) /hpf Urine Mucus Rare H (None) /hpf Thrombosis Risk Factor Assmnt - Choose All That Apply Any of the Below Risk Factors Present?: No Other Risk Factors: No Thrombosis Risk Factor Assessment Level: Very Low Risk
--- NOTE | 2022-11-24 22:05 | P.CONS ---
History of Present Illness - Reason for Consult Consult date: 11/24/22 Pyelonephritis Requesting physician: Billy Diego - Chief Complaint Right flank pain and blood in the urine x 2 days - History of Present Illness Patient is a 37-year-old female with a past medical history of again for anxiety depression current everyday smoker presenting to the hospital for evaluation of right flank pain patient mention she initially started having symptoms of burning of urine and some blood in the urine about 3 days ago however started having the pain to the right flank area describing it to be like a knife sharp about 10 out of 10 radiation to the right groin area patient did have associated nausea and episode of vomiting denies any diarrhea constipation with a 7 the patient was evaluated on arrival to the ER patient was afebrile subsequently spiked a fever of 102 F no significant tachycardia or hypotension was noticed patient was not hypoxic or need for supplemental oxygen, patient did have vital of 15.3 with a left shift creatinine has been normal limits of the normal did have a positive UA patient did have a CT of abdominal pelvis moderate right hydronephrosis hydroureter patient was given a dose of Rocephin has been admitted to the hospital infectious disease was consulted for further management of antibiotic therapy Review of Systems Positive point and negatives has been mentioned in the HPI, complete review of systems was performed and all other systems are negative Past Medical History Past Medical History: No Reported History Additional Past Medical History / Comment(s): anxiety History of Any Multi-Drug Resistant Organisms: None Reported Past Surgical History: Section, Tubal Ligation, Uterine Ablation Additional Past Surgical History / Comment(s): ear Past Psychological History: Anxiety, Depression Smoking Status: Current every day smoker Past Alcohol Use History: Occasional Past Drug Use History: Marijuana - Past Family History Father Family Medical History: Blood Disorder Mother Family Medical History: Hypertension Additional Family Medical History / Comment(s): obese Medications and Allergies Home Medications Medication Instructions Recorded Confirmed Type clonazePAM [KlonoPIN] 0.5 mg PO DAILY PRN 12/10/20 11/24/22 History Escitalopram [Lexapro] 10 mg PO DAILY 11/24/22 11/24/22 History Ibuprofen [Motrin Ib] 800 mg PO Q8H PRN 11/24/22 11/24/22 History cefUROXime axetiL [Ceftin] 500 mg PO BID 7 Days #14 tab 11/26/22 Rx Allergies Allergy/AdvReac Type Severity Reaction Status Date / Time No Known Allergies Allergy Verified 11/24/22 08:54 Physical Exam Vitals: Vital Signs Temp Pulse Resp BP Pulse Ox 11/24/22 11:30 77 18 120/68 99 11/24/22 10:41 67 18 116/67 97 11/24/22 07:12 98.1 F 86 22 146/80 98 Intake and Output 11/23/22 11/24/22 11/24/22 22:59 06:59 14:59 Other: Weight 81.647 kg GENERAL DESCRIPTION: Middle-aged female lying in bed, no distress. No tachypnea or accessory muscle of respiration use. HEENT: Shows Pallor , no scleral icterus. Oral mucous membrane is dry. No phar yngeal erythema or thrush NECK: Trachea central, no thyromegaly. LUNGS: Unlabored breathing. Clear to auscultation anteriorly. No wheeze or crackle. HEART: S1, S2, regular rate and rhythm. No loud murmur ABDOMEN: Soft, no tenderness , guarding or rigidity, no organomegaly EXTREMITIES: No edema of feet. SKIN: No rash, no masses palpable. NEUROLOGICAL: The patient is awake, alert, oriented x3, mood and affect normal. Results CBC & Chem 7: 11/24/22 07:48 11/26/22 10:27 Labs: Abnormal Lab Results - Last 24 Hours (Table) 11/24/22 11/24/22 11/24/22 Range/Units 07:48 07:48 07:48 WBC 15.3 H (3.8-10.6) k/uL Neutrophils # 12.9 H (1.3-7.7) k/uL Potassium 5.2 H (3.5-5.1) mmol/L Glucose 103 H (74-99) mg/dL AST 41 H (14-36) U/L Urine Appearance Cloudy H (Clear) Urine Protein 2+ H (Negative) Urine Blood Moderate H (Negative) Urine Nitrite Positive H (Negative) Ur Leukocyte Esterase Large H (Negative) Urine RBC 22 H (0-5) /hpf Urine WBC >182 H (0-5) /hpf Urine WBC Clumps Many H (None) /hpf Urine Bacteria Occasional H (None) /hpf Urine Mucus Rare H (None) /hpf Assessment and Plan (1) Pyelonephritis Status: Acute Code(s): N12 - TUBULO-INTERSTITIAL NEPHRITIS, NOT SPCF ACUTE OR CHRONIC SNOMED Code(s): 39234481 (2) UTI (urinary tract infection) Status: Acute Code(s): N39.0 - URINARY TRACT INFECTION, SITE NOT SPECIFIED SNOMED Code(s): 98230252 Plan: 1patient was in the hospital with sepsis in this patient with fever elevated white count source is complicated UTI as the patient did have evidence of right- sided hydroureteronephrosis likely from enteric gram-negative pathogen 2-Rocephin 2 g daily while waiting for the culture to finalize 3-urology has been consulted for possible cystoscopy and stent placement 4-IV fluid We will follow on clinical condition and cultures to further adjust medication if needed Thank you for this consultation we will follow the patient along with you Time with Patient: Greater than 30
[2022-11-25] MEDS: SODIUM CHLORIDE 0.9% 1,000 ML IV SCH ×2 (00:49→01:33)
[2022-11-25] MEDS: HYDROcodone/APAP 5-325MG 1 EACH TAB PO PRN ×2 (02:50→11:36)
[2022-11-25] MEDS: ONDANSETRON 4 MG/2 ML VIAL IVP PRN ×3 (02:50→19:00)
[2022-11-25] MEDS: KETOROLAC 15 MG/ML 1 ML VIAL IVP PRN ×2 (08:49→18:06)
[2022-11-25] MEDS: ESCITALOPRAM 10 MG TAB PO SCH (08:49)
--- NOTE | 2022-11-25 10:52 | P.PN ---
Subjective Progress Note Date: 11/25/22 patient 37-year-old lady with past medical significant for kidney stones and depression who presented to the ER because of right-sided flank pain. Patient stated that Thursday she started noticing increased burning off urination, also complaining of increased frequency. There was no complaint of fever or chills. It was accompanied with right-sided flank pain which gradually worsened and started radiating to her groin. Denies any hematuria. Denies any nausea or vomiting. Denies any lightheadedness or dizziness. Because of his right flank pain and burning micturition, patient came to the ER Initial lab work in the ER showed WBC 15.3, hemoglobin 14.3, sodium 138, potassium 5.2, BUN 11, AST 41, AST 17. UA positive for leukocyte esterase and urine nitrites CT abdomen pelvis showed small to moderate right hydronephrosis and hydroureter extending the urinary bladder, no obstructing renal or ureteral stones seen Patient admitted to medicine service 11/25. Patient seen and examined. No further episodes of fever. Abdominal pain improved REVIEW OF SYSTEMS: CONSTITUTIONAL: No fever, no malaise,. CARDIOVASCULAR: No chest pain, no palpitations, no syncope. PULMONARY: No shortness of breath, no cough, GASTROINTESTINAL: No diarrhea, no nausea, no vomiting, no abdominal pain. NEUROLOGICAL: No headaches, no weakness, PHYSICAL EXAMINATION: GENERAL: The patient is alert and oriented x3, not in any acute distress. Well developed, well nourished. HEENT: Pupils are round and equally reacting to light. EOMI. No scleral icterus. No conjunctival pallor. Normocephalic, atraumatic. No pharyngeal erythema. No thyromegaly. CARDIOVASCULAR: S1 and S2 present. No murmurs, rubs, or gallops. PULMONARY: Chest is clear to auscultation, no wheezing or crackles. ABDOMEN: Soft, nontender, nondistended, normoactive bowel sounds. No palpable organomegaly. MUSCULOSKELETAL: No joint swelling or deformity. EXTREMITIES: No cyanosis, clubbing, or pedal edema. NEUROLOGICAL: Gross neurological examination did not reveal any focal deficits. SKIN: No rashes. Assessment and plan Acute pyelonephritis History of kidney stones History of depression Monitor vital signs Monitor CBC Monitor CMP Continue telemetry monitoring Follow-up on blood cultures Follow-up urine cultures Continue IV fluids Continue IV Rocephin Continue pain management Follow-up on urology recommendation Follow-up on ID recommendations Objective - Vital Signs Vital signs: Vital Signs Temp 98.2 F 11/25/22 07:14 Pulse 69 11/25/22 07:14 Resp 16 11/25/22 07:14 BP 97/60 11/25/22 07:14 Pulse Ox 97 11/25/22 07:14 FiO2 Intake & Output 11/24/22 11/25/22 11/25/22 18:59 06:59 18:59 Intake Total 240 Balance 240 Weight 81.647 kg Intake: Intake, IV Titration 240 Amount Sodium Chloride 0.9% 500 240 ml 500 ml @ 999 mls/hr IV .Q31M STA Rx#:[id number] Other: Voiding Method Toilet Toilet # Voids 1 2 - Labs CBC & Chem 7: 11/24/22 07:48 11/24/22 07:48
--- NOTE | 2022-11-25 12:50 | P.PN ---
Subjective Progress Note Date: 11/25/22 Principal diagnosis: Right-sided pyelonephritis Patient is a 37 year female presenting to the hospital with hematuria and right flank pain patient has been diagnosed with right-sided pyelonephritis with right-sided hydroureter nephrosis. On today's evaluation that is 11/25/2022 patient did spike a fever yesterday afternoon however the patient is afebrile this morning she was feeling slightly better right flank pain has slightly decreased no chest pain shortness of breath or cough no nausea no vomiting and no diarrhea Objective - Vital Signs Vital signs: Vital Signs Temp 98.2 F 11/25/22 07:14 Pulse 69 11/25/22 07:14 Resp 16 11/25/22 07:14 BP 97/60 11/25/22 07:14 Pulse Ox 97 11/25/22 07:14 FiO2 Intake & Output 11/24/22 11/25/22 11/25/22 18:59 06:59 18:59 Intake Total 240 Balance 240 Weight 81.647 kg Intake: Intake, IV Titration 240 Amount Sodium Chloride 0.9% 500 240 ml 500 ml @ 999 mls/hr IV .Q31M STA Rx#:[id number] Other: Voiding Method Toilet # Voids 1 2 - Exam GENERAL DESCRIPTION: Middle-age female lying in bed in no distress RESPIRATORY SYSTEM: Unlabored breathing , decreased breath sounds at bases HEART: S1 S2 regular rate and rhythm , ABDOMEN: Soft , no tenderness EXTREMITIES: No edema feet - Labs CBC & Chem 7: 11/24/22 07:48 11/24/22 07:48 Assessment and Plan (1) Pyelonephritis Current Visit: Yes Status: Acute Code(s): N12 - TUBULO-INTERSTITIAL NEPHRITIS, NOT SPCF ACUTE OR CHRONIC SNOMED Code(s): 73142255 Plan: 1patient was in the hospital with sepsis in this patient with fever elevated white count source is complicated UTI as the patient did have evidence of right- sided hydroureteronephrosis likely from enteric gram-negative pathogen 2-Rocephin 2 g daily while waiting for the culture to finalize 3-urology has been consulted awaiting the recommendation Plan discussed with the admitting team Time with Patient: Less than 30
--- NOTE | 2022-11-25 14:42 | P.GSCN ---
History of Present Illness Consult date: 11/25/22 Reason for Consult: Right hydronephrosis History of present illness: This is a 37-year-old female admitted to the hospital with right-sided hyd ronephrosis and a UTI. Patient was having dysuria with suprapubic pressure for the past few days, and subsequently started having right-sided flank pain yesterday associated with nausea and fevers. Denies any previous similar symptoms in the past. Does have history of kidney stones more than 10 years ago which she passed subsequently. Denies any history of recurrent UTIs. Denies any gross hematuria. On since hospital admission the pain has slightly improved but she still having symptomatically flank pain. In the ER she underwent a CT abdomen and pelvis that showed evidence of a mild right-sided hydronephrosis with a dilated ureter down to the UVJ Review of Systems - Constitutional Reports chills, Reports fever - Cardiovascular Denies chest pain, Denies shortness of breath - Respiratory Denies cough, Denies 7 - Gastrointestinal Reports abdominal pain, Reports nausea - Genitourinary Genitourinary: Reports flank pain Past Medical History Past Medical History: No Reported History Additional Past Medical History / Comment(s): anxiety History of Any Multi-Drug Resistant Organisms: None Reported Past Surgical History: Section, Tubal Ligation, Uterine Ablation Additional Past Surgical History / Comment(s): ear Past Anesthesia/Blood Transfusion Reactions: No Reported Reaction Past Psychological History: Anxiety, Depression Smoking Status: Current every day smoker Past Alcohol Use History: Occasional Past Drug Use History: Marijuana - Past Family History Father Family Medical History: Blood Disorder Mother Family Medical History: Hypertension Additional Family Medical History / Comment(s): obese Medications and Allergies Home Medications Medication Instructions Recorded Confirmed Type clonazePAM [KlonoPIN] 0.5 mg PO DAILY PRN 12/10/20 11/24/22 History Escitalopram [Lexapro] 10 mg PO DAILY 11/24/22 11/24/22 History Ibuprofen [Motrin Ib] 800 mg PO Q8H PRN 11/24/22 11/24/22 History Allergies Allergy/AdvReac Type Severity Reaction Status Date / Time No Known Allergies Allergy Verified 11/24/22 08:54 Surgical - Exam Vital Signs Temp Pulse Resp BP Pulse Ox 98.1 F 86 22 146/80 98 11/24/22 07:12 11/24/22 07:12 11/24/22 07:12 11/24/22 07:12 11/24/22 07:12 - General no distress, moderate pain - Eyes normal ocular movement, no pale - ENT normal nares, normal mucosa - Respiratory normal expansion, normal respiratory effort - Abdomen Abdomen: soft, tender (Right flank), no distended - Psychiatric oriented to time, oriented to person, oriented to place Results - Labs 11/24/22 07:48 11/24/22 07:48 Microbiology - Last 24 Hours (Table) 11/24/22 11:24 Urine Culture - Preliminary Urine,Clean Catch Gram Neg Bacilli Assessment and Plan Assessment: 37-year-old female admitted to the hospital right-sided hydronephrosis and a UTI. Urology is consulted for her hydronephrosis. I reviewed her CT scan evidence of dilation of the collecting system and dilated ureter down to the UVJ. No evidence of obstructive stones. Her pain is slightly improved since hospital admission. She has remained afebrile. At this time we'll continue with current pain regimen for her hydronephrosis, we will reassess tomorrow, if pain worsens then we'll proceed with stent insertion, but if patient continues to improve then we'll continue surveillance. Discussed with her she will require repeat ultrasound in 3-4 weeks to assess resolution of the hydronephrosis..
[2022-11-26] MEDS: KETOROLAC 15 MG/ML 1 ML VIAL IVP PRN (01:45)
[2022-11-26] MEDS: SODIUM CHLORIDE 0.9% 1,000 ML IV SCH (01:51)
[2022-11-26 08:07] VITALS: RESP 18; TEMP 98.4
[2022-11-26] MEDS: ESCITALOPRAM 10 MG TAB PO SCH (08:10)
[2022-11-26 11:04] LABS: African American GFR (CKD) >90 (>60 ml/min/1.73 sqM); Anion Gap 8 mmol/L; Blood Urea Nitrogen 10 mg/dL (7-17); Calcium 8.7 mg/dL (8.4-10.2); Carbon Dioxide 20 mmol/L (22-30); Chloride 108 mmol/L (98-107); Glucose 114 mg/dL (74-99); Non-African American GFR(CKD) >90 (>60 ml/min/1.73 sqM); Potassium 3.8 mmol/L (3.5-5.1); Sodium 136 mmol/L (137-145)
--- NOTE | 2022-11-26 12:06 | P.PN ---
Subjective Progress Note Date: 11/26/22 Principal diagnosis: Right-sided pyelonephritis Patient is a 37 year female presenting to the hospital with hematuria and right flank pain patient has been diagnosed with right-sided pyelonephritis with right-sided hydroureter nephrosis. On today's evaluation that is 11/26/2022 patient fever pattern has improved and the patient is afebrile this morning , the patient is better right flank pain has slightly decreased and denies any further hematuria or burning of urine, no chest pain shortness of breath or cough no nausea no vomiting and no diarrhea Objective - Vital Signs Vital signs: Vital Signs Temp 98.4 F 11/26/22 07:27 Pulse 68 11/26/22 07:27 Resp 18 11/26/22 07:27 BP 109/64 11/26/22 07:27 Pulse Ox 97 11/26/22 07:27 FiO2 Intake & Output 11/25/22 11/26/22 11/26/22 18:59 06:59 18:59 Other: Voiding Method Toilet Toilet # Voids 2 # Bowel Movements 0 - Exam GENERAL DESCRIPTION: Middle-age female lying in bed in no distress RESPIRATORY SYSTEM: Unlabored breathing , decreased breath sounds at bases HEART: S1 S2 regular rate and rhythm , ABDOMEN: Soft , no tenderness EXTREMITIES: No edema feet - Labs CBC & Chem 7: 11/24/22 07:48 11/26/22 10:27 Labs: Microbiology - Last 24 Hours (Table) 11/24/22 11:24 Urine Culture - Preliminary Urine,Clean Catch Gram Neg Bacilli Assessment and Plan (1) Pyelonephritis Current Visit: Yes Status: Acute Code(s): N12 - TUBULO-INTERSTITIAL NEPHRITIS, NOT SPCF ACUTE OR CHRONIC SNOMED Code(s): 62451507 Plan: 1patient was in the hospital with sepsis in this patient with fever elevated white count source is complicated UTI as the patient did have evidence of right- sided hydroureteronephrosis likely from enteric gram-negative pathogen 2-patient seemed to have shown clinical improvement and we will continue with Rocephin 2 g daily while waiting for the culture to finalize to determine her discharge antibiotics, questions concerned were answered 3 Time with Patient: Less than 30
[2022-11-26 13:12] VITALS: BP 121/68; PULSE 90
--- NOTE | 2022-11-26 20:36 | P.PN ---
Subjective Progress Note Date: 11/26/22 Patient is evaluated today sitting up in chair. Reports significant improvement in symptoms, flank pain has resolved. Currently afebrile. Asking about discharge. Urine culture currently pending showing gram negative bacilli and patient is currently continued on IV ceftriaxone. Infectious disease and urology following. Urology considering ureter stent placement for the right sided hydronephrosis and hydroureter if symptoms not improving. Potassium improved to 3.8 and renal function within normal limits creatinine of 0.62 today. Afebrile for 48 hours. Review of Systems Constitutional: Denied any fatigue denied any fever. Cardio vascular: denied any chest pain, palpitations Gastrointestinal: denied any nausea, vomiting, diarrhea Pulmonary: Denied any shortness of breath cough Neurologic denied any new focal deficits All inpatient medications were reviewed and appropriate changes in these medic ations as dictated in the interval history and assessment and plan. PHYSICAL EXAMINATION: GENERAL: The patient is alert and oriented x3, not in any acute distress. Well developed, well nourished. HEENT: Pupils are round and equally reacting to light. EOMI. No scleral icterus. No conjunctival pallor. Normocephalic, atraumatic. No pharyngeal erythema. No thyromegaly. CARDIOVASCULAR: S1 and S2 present. No murmurs, rubs, or gallops. PULMONARY: Chest is clear to auscultation, no wheezing or crackles. ABDOMEN: Soft, nontender, nondistended, normoactive bowel sounds. No palpable organomegaly. no CVA tenderness. MUSCULOSKELETAL: No joint swelling or deformity. EXTREMITIES: No cyanosis, clubbing, or pedal edema. NEUROLOGICAL: Gross neurological examination did not reveal any focal deficits. SKIN: No rashes. Assessment Acute pyelonephritis and sepsis present on admission Right hydronephrosis and hydroureter with no radiographic evidence of obstructive kidney stone History of kidney stones History of depression GI prophylaxis DVT prophylaxis Early ambulation Plan Continue pain management Continue IV antibiotics pending final urine culture Follow up urology on recommendations pending clinical course Urology recommending f/u ultrasound in 3 to 4 weeks to monitor for resolution of the hydronephrosis The impression and plan of care has been dictated by Elvira Lopez Nurse Practitioner as directed. Dr. Chato MD I have performed a history and physical examination and medical decision making of this patient, discussed the same with the dictator, and agree with the dictators assessment and plan as written, documented as a scribe. Based on total visit time, I have performed more than 50% of this visit. Objective - Vital Signs Vital signs: Vital Signs Temp 98.4 F 11/26/22 12:52 Pulse 90 11/26/22 12:52 Resp 18 11/26/22 12:52 BP 121/68 11/26/22 12:52 Pulse Ox 98 11/26/22 12:52 FiO2 Intake & Output 11/25/22 11/26/22 11/26/22 18:59 06:59 18:59 Other: Voiding Method Toilet Toilet # Voids 2 # Bowel Movements 0 - Labs CBC & Chem 7: 11/24/22 07:48 11/26/22 10:27 Labs: Abnormal Lab Results - Last 24 Hours (Table) 11/26/22 Range/Units 10:27 Sodium 136 L (137-145) mmol/L Chloride 108 H (98-107) mmol/L Carbon Dioxide 20 L (22-30) mmol/L Glucose 114 H (74-99) mg/dL Microbiology - Last 24 Hours (Table) 11/24/22 11:24 Urine Culture - Preliminary Urine,Clean Catch Gram Neg Bacilli Assessment and Plan Time with Patient: Less than 30
--- NOTE | 2022-11-26 20:42 | P.DS ---
Providers Date of admission: 11/24/22 10:39 Attending physician: Anastacio Garcia MD Consults: 11/24/22 08:43 Consult Physician Routine Consulting Provider: Anna Garcia Consult Reason/Comments: Pyelonephritis Do you want consulting provider notified?: Yes, Notify in am 11/24/22 15:33 Consult Physician Routine Consulting Provider: Bert Keenan Consult Reason/Comments: Right-sided hydronephrosis, history of kidney stones Do you want consulting provider notified?: Yes Primary care physician: [facility] Course: Final Diagnosis Acute pyelonephritis and sepsis present on admission Right hydronephrosis and hydroureter with no radiographic evidence of obstructive kidney stone History of kidney stones History of depression Full Code Discharge Disposition Patient left against medical advice without alerting staff. Patient is sent in 7 days of oral ceftin 500 mg BID to finish course of antibiotic therapy as was having clinical improvement with IV ceftriaxone while hospitalized. Urine cult ure has not finalized. Recommending urology follow up on discharge unfortunately patient left AMA without follow up discharge instructions. Hospital Course This is a pleasant 37-year-old female with past medical significant for kidney stones and depression who presented to the ER because of right-sided flank pain. Patient stated that Thursday she started noticing increased burning off urination, also complaining of increased frequency. There was no complaint of fever or chills. It was accompanied with right-sided flank pain which gradually worsened and started radiating to her groin. Denies any hematuria. Denies any nausea or vomiting. Denies any lightheadedness or dizziness. Because of his right flank pain and burning micturition, patient came to the ER. Patient had leukocytosis and UA positive for leukocyte esterase and urine nitrites. CT abdomen pelvis showed small to moderate right hydronephrosis and hydroureter extending the urinary bladder, no obstructing renal or ureteral stones seen. Patient admitted for pyelonephritis and started on IV cetriaxone with consult to ID and urology. Patient had clinical improvement urinating without diffulty and flank pain has resolved. Fever has improved. Patient did leave AMA pending finalized urine cultures did not want to wait for the final culture. Patient had clinical improvement with ceftriaxone and a course of oral ceftin was sent in for the patient this was discussed with infectious disease. Urology recommended follow up ultrasound in 3 to 4 weeks to monitor for resolution of the hydronephrosis. Patient left against medial advice without formal discharge or discharge paper work and instructions. Please see medication reconciliation for a list of current medication. Thank you for allowing us to participate in the care of this patient. The impression and plan of care has been dictated by Elvira Lopez, Nurse Practitioner as directed. Dr. Chato MD I have performed a history and physical examination and medical decision making of this patient, discussed the same with the dictator, and agree with the dictators assessment and plan as written, documented as a scribe. Based on total visit time, I have performed more than 50% of this visit. Plan - Discharge Summary Discharge Rx Participant: No New Discharge Prescriptions: New cefUROXime axetiL [Ceftin] 500 mg PO BID 7 Days #14 tab No Action Ibuprofen [Motrin Ib] 800 mg PO Q8H PRN PRN Reason: Pain clonazePAM [KlonoPIN] 0.5 mg PO DAILY PRN PRN Reason: Anxiety Escitalopram [Lexapro] 10 mg PO DAILY Discharge Medication List clonazePAM [KlonoPIN] 0.5 mg PO DAILY PRN 12/10/20 [History] Escitalopram [Lexapro] 10 mg PO DAILY 11/24/22 [History] Ibuprofen [Motrin Ib] 800 mg PO Q8H PRN 11/24/22 [History] cefUROXime axetiL [Ceftin] 500 mg PO BID 7 Days #14 tab 11/26/22 [Rx] Follow up Appointment(s)/Referral(s): Bert Keenan MD [STAFF PHYSICIAN] - 1-2 days Dhiraj Keenan MD [Primary Care Provider] - 1-2 days Discharge Disposition: LEFT AGAINST MEDICAL ADVICE
== END 2022-11-26 15:17 | disposition left against medical advice (07) ==
LOC: EC 07:09 → 5NMEDONC 10:39 → INTOOBSV 10:39 → 5NMEDONC 12:53 → UNDODISIN 11-26 15:17
PROVIDERS: ADMIT Internal Medicine; ATTEND Internal Medicine
DX: A41.9 Sepsis, unspecified organism (principal); N13.6 Pyonephrosis; Z53.29 Procedure and treatment not carried out because of patient's decision for other reasons; F32.A Depression, unspecified; F41.9 Anxiety disorder, unspecified; F17.200 Nicotine dependence, unspecified, uncomplicated; Z79.899 Other long term (current) drug therapy; Z87.442 Personal history of urinary calculi; Z98.51 Tubal ligation status; Z98.891 History of uterine scar from previous surgery; Z98.890 Other specified postprocedural states; Z82.49 Family history of ischemic heart disease and other diseases of the circulatory system; Z83.49 Family history of other endocrine, nutritional and metabolic diseases
CPT/HCPCS: 96376 ×4; 96361 ×3; 96365; 96366 ×2; 96375; 99285; 36415; 80053; 80048; 85025; 81001; 87040; 87086; 74176; G0378 ×3; J2270; J2405 ×2; J0696 ×3; J1885 ×3

== ENCOUNTER → 2022-12-30 | Outpatient (CLI) | payer OTHER ==
--- NOTE | 2022-12-30 18:31 | US ---
EXAMINATION TYPE: US kidneys/renal and bladder DATE OF EXAM: 12/30/2022 COMPARISON: CT 11/24/2022 CLINICAL INDICATION: Female, 37 years old with history of N13.30 HYDRONEPHROSIS; H/O right renal hydr onephrosis EXAM MEASUREMENTS: Right Kidney: 11.1 x 4.9 x 5.2 cm Left Kidney: 11.5 x 4.7 x 4.9 cm Right Kidney: No hydronephrosis or masses seen Left Kidney: No hydronephrosis or masses seen Bladder: wnl Bilateral Jets seen: No IMPRESSION: No hydronephrosis on either side.
== END | disposition home or self-care (01) ==
LOC: RADUSWWP 14:43
PROVIDERS: ATTEND Urology
DX: N13.30 Unspecified hydronephrosis (principal)
CPT/HCPCS: 76770

== ENCOUNTER 2023-11-03 12:15 | Emergency (ER) | payer SELFPAY ==
[2023-11-03] MEDS: PROPARACAINE 0.5% OPHTH DROPS 15 ML BTL RIGHT EYE STA (12:49)
[2023-11-03] MEDS: FLUORESCEIN STRIPS 1 MG STRIP RIGHT EYE ONE (12:49)
--- NOTE | 2023-11-03 13:50 | ED ---
Eye Problem HPI - General Chief complaint: Eye Problems Stated complaint: Foreign object in R eye Time Seen by Provider: 11/03/23 12:21 Source: patient, RN notes reviewed Mode of arrival: ambulatory Limitations: no limitations - History of Present Illness Initial comments: 38-year-old female presents emergency department chief complaint of right eye pain, irritation. Patient states that started days ago. 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 Patient states that she had to have a second surgery 2 years ago. Patient states that she noticed some discoloration of her upper iris region on the right eye. She states she has light sensitivity, tearing and pressure sensation of the right eye. - Related Data Home Medications Medication Instructions Recorded Confirmed clonazePAM [KlonoPIN] 0.5 mg PO DAILY PRN 12/10/20 11/24/22 Escitalopram [Lexapro] 10 mg PO DAILY 11/24/22 11/24/22 Ibuprofen [Motrin Ib] 800 mg PO Q8H PRN 11/24/22 11/24/22 Previous Rx's Medication Instructions Recorded cefUROXime axetiL [Ceftin] 500 mg PO BID 7 Days #14 tab 11/26/22 Allergies Allergy/AdvReac Type Severity Reaction Status Date / Time hydromorphone [From Dilaudid] Allergy Nausea & Verified 11/03/23 12:19 Vomiting Review of Systems ROS Statement: Those systems with pertinent positive or pertinent negative responses have been documented in the HPI. ROS Other: All systems not noted in ROS Statement are negative. Past Medical History Past Medical History: No Reported History Additional Past Medical History / Comment(s): anxiety History of Any Multi-Drug Resistant Organisms: None Reported Past Surgical History: Section, Tubal Ligation, Uterine Ablation Additional Past Surgical History / Comment(s): ear Past Anesthesia/Blood Transfusion Reactions: No Reported Reaction Past Psychological History: Anxiety, Depression Smoking Status: Current every day smoker Past Alcohol Use History: Occasional Past Drug Use History: Marijuana - Past Family History Father Family Medical History: Blood Disorder Mother Family Medical History: Hypertension Additional Family Medical History / Comment(s): obese General Exam Limitations: no limitations General appearance: alert, in no apparent distress Head exam: Present: atraumatic, normocephalic, normal inspection Eye exam: Present: PERRL, EOMI, conjunctival injection (Minimal right), other (No fluorescein uptake noted). Absent: normal appearance (Grayish discoloration from the 2:00 to 10 o'clock position), scleral icterus, periorbital swelling Pupils: Present: other (Intraocular pressure right 20, left 18) ENT exam: Present: normal exam, normal oropharynx, mucous membranes moist Neck exam: Present: normal inspection, full ROM. Absent: tenderness, meningismus, lymphadenopathy Respiratory exam: Present: normal lung sounds bilaterally. Absent: respiratory distress, wheezes, rales, rhonchi, stridor Cardiovascular Exam: Present: regular rate, normal rhythm, normal heart sounds. Absent: systolic murmur, diastolic murmur, rubs, gallop, clicks Course Vital Signs 11/03/23 11/03/23 12:17 13:57 Temperature 98.1 F 98.2 F Pulse Rate 66 61 Respiratory 20 18 Rate Blood Pressure 141/83 129/68 O2 Sat by Pulse 98 99 Oximetry Medical Decision Making - Medical Decision Making Was pt. sent in by a medical professional or institution (Dr. PA, BUSINESS PROCESS REPRESENTATIVE, urgent care, hospital, or group home...) When possible be specific @ -No Did you speak to anyone other than the patient for history (EMS, parent, family, police, friend...)? What history was obtained from this source @ -No Did you review nursing and triage notes (agree or disagree)? Why? @ -I reviewed and agree with nursing and triage notes Were old charts reviewed (outside hosp., previous admission, EMS record, old EKG, old radiological studies, urgent care reports/EKG's, group home records)? Report findings @ -No old charts were reviewed Differential Diagnosis (chest pain, altered mental status, abdominal pain women, abdominal pain men, vaginal bleeding, weakness, fever, dyspnea, syncope, headache, dizziness, GI bleed, back pain, seizure, CVA, palpatations, mental health, musculoskeletal)? @ -[Corneal abrasion, corneal ulcer, glaucoma, iritis, this list is not all i nclusive EKG interpreted by me (3pts min.). @ -None X-rays interpreted by me (1pt min.). @ -None done CT interpreted by me (1pt min.). @ -None done U/S interpreted by me (1pt. min.). @ -None done What testing was considered but not performed or refused? (CT, X-rays, U/S, labs)? Why? @ -None What meds were considered but not given or refused? Why? @ -None Did you discuss the management of the patient with other professionals (professionals i.e. , PA, BUSINESS PROCESS REPRESENTATIVE, lab, RT, psych nurse, professor of social work, record searcher, teacher, police commanding officer, pillowcase cleaner)? Give summary @ -Dr. Pulido written regarding patient's current symptoms and known history Was smoking cessation discussed for >3mins.? @ -No Was critical care preformed (if so, how long)? @ -No Were there social determinants of health that impacted care today? How? (Homelessness, low income, unemployed, alcoholism, drug addiction, transportation, low edu. Level, literacy, decrease access to med. care, care home, rehab)? @ -No Was there de-escalation of care discussed even if they declined (Discuss DNR or withdrawal of care, Hospice)? DNR status @ -No What co-morbidities impacted this encounter? (DM, HTN, Smoking, COPD, CAD, Cancer, CVA, ARF, Chemo, Hep., AIDS, mental health diagnosis, sleep apnea, morbid obesity)? @ -None Was patient admitted / discharged? Hospital course, mention meds given and route, prescriptions, significant lab abnormalities, going to OR and other pertinent info. @ -Discharge directly to knife setter grinder machine office for evaluation Undiagnosed new problem with uncertain prognosis? @ -No Drug Therapy requiring intensive monitoring for toxicity (Heparin, Nitro, Insulin, Cardizem)? @ -No Were any procedures done? @ -No Diagnosis/symptom? @ -Right eye pain Acute, or Chronic, or Acute on Chronic? @ -Acute Uncomplicated (without systemic symptoms) or Complicated (systemic symptoms)? @ -Uncomplicated Side effects of treatment? @ -No Exacerbation, Progression, or Severe Exacerbation? @ -No Poses a threat to life or bodily function? How? (Chest pain, [place], [place], pneumonia, PE, COPD, DKA, ARF, appy, cholecystitis, CVA, Diverticulitis, Homicidal, Suicidal, threat to staff... and all critical care pts) @ -No Disposition Clinical Impression: Eye pain Disposition: HOME SELF-CARE Condition: Stable Additional Instructions: Go directly to Dr. Pulido's office Is patient prescribed a controlled substance at d/c from ED?: No Referrals: Dhiraj Keenan MD [Primary Care Provider] - 1-2 days Time of Disposition: 13:50
[2023-11-03 13:58] VITALS: BP 129/68; PULSE 61; RESP 18; TEMP 98.2
== END 2023-11-03 13:58 | disposition home or self-care (01) ==
LOC: EC 12:15
DX: H57.11 Ocular pain, right eye (principal); F17.200 Nicotine dependence, unspecified, uncomplicated; Z88.8 Allergy status to other drugs, medicaments and biological substances
CPT/HCPCS: 99282

== ENCOUNTER 2024-12-28 15:15 | Emergency (ER) | payer SELFPAY ==
--- NOTE | 2024-12-28 15:42 | ED ---
Nausea/Vomiting/Diarrhea HPI - General Chief complaint: Nausea/Vomiting/Diarrhea Stated complaint: Vomiting Time Seen by Provider: 12/28/24 15:25 Source: patient, family, RN notes reviewed Mode of arrival: ambulatory Limitations: no limitations - History of Present Illness Initial comments: This is a 39-year-old female who presents to the emergency department for nausea and vomiting. States that it started around 11 PM last night. Reports associated diarrhea and states that she is going more times than she can count. States that she feels very dehydrated due to cramping in her bilateral lower extremities. Denies any abdominal pain. States that she had a new avocado dressing with dinner yesterday and wonders if she may have gotten sick from t hat. Denies any fevers or chills. MD complaint: nausea, vomiting, diarrhea - Related Data Home Medications Medication Instructions Recorded Confirmed clonazePAM [KlonoPIN] 0.5 mg PO DAILY PRN 12/10/20 11/24/22 Escitalopram [Lexapro] 10 mg PO DAILY 11/24/22 11/24/22 Ibuprofen [Motrin Ib] 800 mg PO Q8H PRN 11/24/22 11/24/22 Previous Rx's Medication Instructions Recorded cefuroxime axetiL [Ceftin] 500 mg PO BID 7 Days #14 tab 11/26/22 Ketorolac [Toradol] 10 mg PO Q6HR PRN #15 tab 12/28/24 Metoclopramide [Reglan] 10 mg PO Q6H PRN #30 tab 12/28/24 Ondansetron Odt [Zofran Odt] 4 mg PO Q8HR PRN #30 tab 12/28/24 Allergies Allergy/AdvReac Type Severity Reaction Status Date / Time hydromorphone [From Dilaudid] Allergy Nausea & Verified 12/28/24 15:23 Vomiting Review of Systems ROS Statement: Those systems with pertinent positive or pertinent negative responses have been documented in the HPI. ROS Other: All systems not noted in ROS Statement are negative. Past Medical History Past Medical History: No Reported History Additional Past Medical History / Comment(s): anxiety History of Any Multi-Drug Resistant Organisms: None Reported Past Surgical History: Section, Tubal Ligation, Uterine Ablation Additional Past Surgical History / Comment(s): ear Past Anesthesia/Blood Transfusion Reactions: No Reported Reaction Past Psychological History: Anxiety, Depression Smoking Status: Current every day smoker Past Alcohol Use History: None Reported Past Drug Use History: None Reported - Past Family History Father Family Medical History: Blood Disorder Mother Family Medical History: Hypertension Additional Family Medical History / Comment(s): obese General Exam Limitations: no limitations General appearance: alert, in no apparent distress Head exam: Present: atraumatic, normocephalic, normal inspection Respiratory exam: Present: normal lung sounds bilaterally. Absent: respiratory distress, wheezes, rales, rhonchi, stridor Cardiovascular Exam: Present: regular rate, normal rhythm GI/Abdominal exam: Present: soft. Absent: distended, tenderness Neurological exam: Present: alert, oriented X3, CN II-XII intact Psychiatric exam: Present: normal affect, normal mood Skin exam: Present: warm, dry, intact, normal color. Absent: rash Course Vital Signs 12/28/24 12/28/24 12/28/24 15:19 16:26 17:16 Temperature 99.2 F 99.3 F Pulse Rate 65 84 Respiratory 18 17 16 Rate Blood Pressure 127/73 94/58 O2 Sat by Pulse 96 97 Oximetry 12/28/24 19:33 Temperature 98.9 F Pulse Rate 71 Respiratory 17 Rate Blood Pressure 104/62 O2 Sat by Pulse 99 Oximetry Medical Decision Making - Medical Decision Making This is a 39 year old female who presents to the emergency department for nausea and vomiting. Was pt. sent in by a medical professional or institution? @ -No Did you speak to anyone other than the patient for history? @ -No Did you review nursing and triage notes? @ -Yes, and I agree, it is accurate with regards to the patient's symptoms. Were old charts reviewed? @ -No Differential Diagnosis? @ -Differential Nausea and Vomiting: Gastroenteritis, cholecystitis, appendicitis, pancreatitis, migraine, benign positional vertigo, food borne illness, pyelonephritis, irritable bowel syndrome, influenza, Covid, GERD, incarcerated hernia, intestinal obstruction, this is not meant to be an all-inclusive list. EKG interpreted by me (3pts min.)? @ -Not obtained X-rays interpreted by me (1pt min.)? @ -Not obtained CT interpreted by me (1pt min.)? @ -Not obtained U/S interpreted by me (1pt. min.)? @ -Not obtained What testing was considered but not performed? (CT, X-rays, U/S, labs)? Why? @ -None What meds were considered but not given? Why? @ -None Did you discuss the management of the patient with other professionals? @ -No Did you reconcile home meds? @ -No Was smoking cessation discussed for >3mins.? @ -I discussed smoking cessation for greater than 3 minutes. The risk of smoking were discussed with the patient including but not limited to risks of cancer, stroke, coronary artery disease and COPD. Also discussed with patient were multiple methods of quitting smoking. Lastly we discussed the financial cost of smoking. Was critical care preformed (if so, how long)? @ -No Were there social determinants of health that impacted care today? How? (Homelessness, low income, unemployed, alcoholism, drug addiction, transportation, low edu. Level, literacy, decrease access to med. care, correction, rehab)? @ -No Was there de-escalation of care discussed even if they declined? (Discuss DNR or withdrawal of care, Hospice)? @ -No What co-morbidities impacted this encounter? (DM, HTN, Smoking, COPD, CAD, Cancer, CVA, Hep., AIDS, mental health diagnosis, sleep apnea, morbid obesity)? @ -Smoking Was patient admitted / discharged? @ -Discharged. Lab work demonstrates mild leukocytosis with a white blood cell count of 11.12. She also has mild hypomagnesemia with a magnesium of 1.5. Lab work otherwise relatively unremarkable. 2g of Magnesium sulfate administered along with 1L of IV fluids. Symptoms well controlled and she was tolerating oral intake. Zofran and reglan prescribed for further management of nausea and Toradol was prescribed for any additional discomfort. Advised she slowly advance her diet as tolerated and remain well hydrated. Patient discharged home in stable condition. Case discussed with ED attending, Dr. Man. Undiagnosed new problem with uncertain prognosis? @ -None Drug Therapy requiring intensive monitoring for toxicity (Heparin, Nitro, Insulin, Cardizem)? @ -None Were any procedures done? @ -None Diagnosis/symptom? @ -Nausea and vomiting Acute, or Chronic, or Acute on Chronic? @ -Acute Uncomplicated (without systemic symptoms) or Complicated (systemic symptoms)? @ -Uncomplicated Side effects of treatment? @ -None Exacerbation, Progression, or Severe Exacerbation] @ -Not applicable Poses a threat to life or bodily function? @ -No - Lab Data Result diagrams: 12/28/24 15:48 12/28/24 15:48 Lab Results 12/28/24 12/28/24 12/28/24 Range/Units 15:48 15:48 15:48 WBC 11.12 H (4.50-10.00) 10*3/uL RBC 5.12 (4.10-5.20) 10*6/uL Hgb 15.8 H (12.0-15.0) g/dL Hct 45.6 (37.2-46.3) % MCV 89.1 (80.0-97.0) fL MCH 30.9 (27.0-32.0) pg MCHC 34.6 (32.0-37.0) g/dL Plt Count 212 (140-440) 10*3/uL MPV 12.7 H (9.5-12.2) fL Immature Gran % (Auto) 0.4 % Neutrophils % 93.3 % Lymphocytes % 2.8 % Monocytes % 3.2 % Eosinophils % 0.0 % Basophils % 0.3 % Immature Gran # 0.05 H (0.00-0.04) 10*3/uL Neutrophils # 10.37 H (1.80-7.70) 10*3/uL Lymphocytes # 0.31 L (0.90-5.00) 10*3/uL Monocytes # 0.36 (0.20-1.00) 10*3/uL Eosinophils # 0.00 L (0.04-0.35) 10*3/uL Basophils # 0.03 (0.00-0.10) 10*3/uL Sodium 134 L (137-145) mmol/L Potassium 3.6 (3.5-5.1) mmol/L Chloride 106 (98-107) mmol/L Carbon Dioxide 17 L (22-30) mmol/L Anion Gap 11 mmol/L BUN 17 (7-17) mg/dL Creatinine 0.58 (0.52-1.04) mg/dL Est GFR (CKD-EPI)AfAm >90 (>60 ml/min/1.73 sqM) Est GFR (CKD-EPI)NonAf >90 (>60 ml/min/1.73 sqM) Glucose 118 H (74-99) mg/dL Plasma Lactic Acid Jerzy 1.5 (0.7-2.0) mmol/L Calcium 10.1 (8.4-10.2) mg/dL Magnesium 1.5 L (1.6-2.3) mg/dL Total Bilirubin 1.0 (0.2-1.3) mg/dL AST 18 (14-36) U/L ALT 13 (4-34) U/L Alkaline Phosphatase 81 (38-126) U/L Total Protein 7.2 (6.3-8.2) g/dL Albumin 4.4 (3.5-5.0) g/dL Amylase 39 (30-110) U/L Lipase 21 L (23-300) U/L HCG, Qual Not Detected Disposition Clinical Impression: Nausea and vomiting, Nicotine dependence Disposition: HOME SELF-CARE Instructions (If sedation given, give patient instructions): Acute Nausea and Vomiting (ED) Additional Instructions: Return to the emergency department with any new, worsening, or concerning symptoms. Take the Zofran up to every 8 hours as needed for nausea and vomiting and the Reglan up to every 6 hours as needed for nausea and vomiting. Take the Toradol with Tylenol as needed for pain relief. If you choose to take the Toradol, do not take any other anti-inflammatories such as ibuprofen, take one or the other. Follow up with your primary care provider in 1-2 days. Prescriptions: Metoclopramide [Reglan] 10 mg PO Q6H PRN #30 tab PRN Reason: Nausea And Vomiting Ketorolac [Toradol] 10 mg PO Q6HR PRN #15 tab PRN Reason: Pain Ondansetron Odt [Zofran Odt] 4 mg PO Q8HR PRN #30 tab PRN Reason: Nausea And Vomiting Is patient prescribed a controlled substance at d/c from ED?: No Referrals: None,Stated [Primary Care Provider] - 1-2 days Time of Disposition: 19:17
[2024-12-28] MEDS: ONDANSETRON 4 MG/2 ML VIAL IVP STA (15:52)
[2024-12-28] MEDS: SODIUM CHLORIDE 0.9% 1,000 ML IV STA (15:52)
[2024-12-28 15:54] LABS: Basophils # (A) 0.03 10*3/uL (0.00-0.10); Basophils % (A) 0.3 %; Eosinophils # (A) 0.00 10*3/uL (0.04-0.35); Eosinophils % (A) 0.0 %; HCT 45.6 % (37.2-46.3); HGB 15.8 g/dL (12.0-15.0); Lymphocytes # (A) 0.31 10*3/uL (0.90-5.00); Lymphocytes % (A) 2.8 %; MCH 30.9 pg (27.0-32.0); MCHC 34.6 g/dL (32.0-37.0); MCV 89.1 fL (80.0-97.0); Monocytes # (A) 0.36 10*3/uL (0.20-1.00); Monocytes % (A) 3.2 %; Neutrophils # (A) 10.37 10*3/uL (1.80-7.70); Neutrophils % (A) 93.3 %; Platelet Count 212 10*3/uL (140-440); RBC 5.12 10*6/uL (4.10-5.20); RDW 13.1 % (11.5-14.5); WBC 11.12 10*3/uL (4.50-10.00)
[2024-12-28] MEDS: PANTOPRAZOLE 40 MG/10 ML VIAL IVP STA (15:54)
[2024-12-28 16:06] LABS: ALT 13 U/L (4-34); AST 18 U/L (14-36); African American GFR (CKD) >90 (>60 ml/min/1.73 sqM); Albumin 4.4 g/dL (3.5-5.0); Alkaline Phosphatase 81 U/L (38-126); Amylase 39 U/L (30-110); Anion Gap 11 mmol/L; Blood Urea Nitrogen 17 mg/dL (7-17); Calcium 10.1 mg/dL (8.4-10.2); Carbon Dioxide 17 mmol/L (22-30); Chloride 106 mmol/L (98-107); Glucose 118 mg/dL (74-99); Lipase 21 U/L (23-300); Magnesium 1.5 mg/dL (1.6-2.3); Non-African American GFR(CKD) >90 (>60 ml/min/1.73 sqM); Potassium 3.6 mmol/L (3.5-5.1); Sodium 134 mmol/L (137-145); Total Protein 7.2 g/dL (6.3-8.2)
[2024-12-28 16:09] LABS: HCG,Qualitative Serum Not Detected
[2024-12-28] MEDS: MAGNESIUM SULFATE-D5W PMX 1 GM in DEXTROSE/WATER 1 100ML.BAG IVPB SCH (16:25)
[2024-12-28] MEDS: METOCLOPRAMIDE 5 MG/ML 2 ML VIAL IVP STA (18:32)
[2024-12-28] MEDS: KETOROLAC 15 MG/ML 1 ML VIAL IVP STA (19:16)
[2024-12-28] MEDS: ORPHENADRINE 30 MG/ML 2 ML VIAL IVP STA (19:18)
[2024-12-28] MEDS: SODIUM CHLORIDE 0.9% 1,000 ML IV ONE (19:19)
[2024-12-28] MEDS: traMADol 50 MG STARTER PACK TAB BTL PO STA (19:29)
[2024-12-28] MEDS: ONDANSETRON 4 MG ODT STARTER PACK TAB BTL PO STA (19:29)
[2024-12-28] MEDS: DIPHENOX-ATROP STARTER PACK 8 TAB BTL PO STA (19:30)
[2024-12-28 19:35] VITALS: BP 104/62; PULSE 71; RESP 17; TEMP 98.9
== END 2024-12-28 19:35 | disposition home or self-care (01) ==
LOC: EC 15:15
CPT/HCPCS: 36415; 80053; 82150; 83605; 83690; 83735; 84703; 85025; 96365; 96366; 96375; 99284